=== PATIENT | female | born 1945 | race Caucasian/White ===

== ENCOUNTER 2024-03-23 04:55 | Inpatient (IN) | payer MEDICARE ==
[2024-03-23] VITALS (22 sets, daily range): BP systolic 90–119; BP diastolic 36–97; PULSE 55–95; RESP 12–19; TEMP 97.4–99; O2SAT 72–99
[~2024-03-23] VITALS: Ht 170.2 cm; Wt 113.0 kg
[2024-03-23] MEDS: normal saline 1000ML IV soln IV ONE (05:06)
[2024-03-23 05:31] LABS: BASOPHILS % (AUTO) 0.5 % (0-1); EOSINOPHILS # (AUTO) 0.3 X10'3 (0-0.9); EOSINOPHILS % (AUTO) 4.8 % (0-6); HEMATOCRIT 22.1 % (35.0-45.0); LYMPHOCYTES # (AUTO) 1.7 X10'3 (1.1-4.8); LYMPHOCYTES % (AUTO) 24.9 % (21-51); MEAN CORPUSCULAR HEMOGLOBIN 34.3 PG (27.0-31.0); MEAN CORPUSCULAR HGB CONC 31.8 g/dL (33.0-36.5); MEAN CORPUSCULAR VOLUME 107.7 FL (78-98); MONOCYTES # (AUTO) 0.5 X10'3 (0-0.9); MONOCYTES % (AUTO) 7.9 % (2-12); NEUTROPHILS # (AUTO) 4.2 X10'3 (1.8-7.7); NEUTROPHILS % (AUTO) 61.9 % (42-75); PLATELET COUNT 172 X10'3 (140-440); RED BLOOD COUNT 2.05 X10'6 (4.20-5.60); RED CELL DISTRIBUTION WIDTH 17.4 % (11.5-14.5); WHITE BLOOD COUNT 6.7 X10'3 (4.5-11.0)
[2024-03-23 05:40] LABS: ALBUMIN 2.2 G/DL (3.4-5.0); ANION GAP 15 (8-16); BLOOD UREA NITROGEN 57 MG/DL (7-18); BUN/CREATININE RATIO 10.5 (10.0-20.0); CALCIUM 6.3 MG/DL (8.5-10.1); CHLORIDE 104 MMOL/L (99-107); CREATININE 5.43 MG/DL (0.40-0.90); GLUCOSE 167 MG/DL (70-104); POTASSIUM 3.4 MMOL/L (3.5-5.1); SODIUM 141 MMOL/L (135-145); eCRCL 8 ML/MIN; eGFR 8 ML/MIN
[2024-03-23 05:46] LABS: APTT 28 SECONDS (22-32); INR 1.3 INR; PROTHROMBIN TIME 13.2 SECONDS (9.0-12.0)
[2024-03-23 06:01] LABS: ANISOCYTOSIS 1+; PLATELET ESTIMATE NORMAL
[2024-03-23] MEDS: HUM PROTHROMB CPLX-LANS 2,000 UNIT in IV piggyback 80 ML IV ONE (06:12)
[2024-03-23] MEDS ORDERED: iohexol 350MG/ML 100ml bottle IV ONE (06:20)
[2024-03-23] MEDS ORDERED: heparin 10,000 units/1 ML INJ ONE ×2 (07:24→07:35)
[2024-03-23] MEDS: VANCOMYCIN 1GM 200ML H20 (PEG) 200 ML IV ONE (07:45)
[2024-03-23] MEDS ORDERED: sevoflurane 250ml liquid IH ONE (07:52)
[2024-03-23] MEDS ORDERED: fentaNYL/PF 50MCG/1 ML 2ML syringe ONE (07:52)
[2024-03-23] MEDS ORDERED: midazolam 1 mg/ML 2ml injection ONE (07:53)
[2024-03-23] MEDS ORDERED: propofol inj 20 ML IV ONE (08:04)
[2024-03-23] MEDS ORDERED: ceFAZolin 1000mg inj ONE ×2 (08:04)
[2024-03-23] MEDS ORDERED: rocuronium 10mg/ml inj IV ONE (08:04)
[2024-03-23] MEDS ORDERED: clindamycin-Cleocin 900mg/D5W 50 ML IV ONE (08:10)
[2024-03-23] MEDS ORDERED: sugammadex 200mg/2ml injection IV ONE (09:40)
[2024-03-23] MEDS ORDERED: naloxone 0.4 mg/ml inj IV PRN (10:05)
[2024-03-23] MEDS ORDERED: ondansetron/PF 4mg/2ml inj IV PRN ×2 (10:05→10:15)
[2024-03-23] MEDS ORDERED: potassium Cl 20 mEq SR tablet PO PRN ×2 (10:15)
[2024-03-23] MEDS ORDERED: magnesium Cl slow-release 64mg tablet PO PRN (10:15)
[2024-03-23] MEDS ORDERED: magnesium sulf-water 2g/50mL 50 ML IV PRN (10:15)
[2024-03-23] MEDS ORDERED: potassium Cl 40MEQ/1/2NS 520ml 520 ML IV PRN (10:15)
[2024-03-23] MEDS ORDERED: morphine 2 MG/ML inj. syringe IV PRN (10:15)
[2024-03-23] MEDS ORDERED: magnesium sulf-water 4G/100mL 100 ML IV PRN (10:15)
[2024-03-23 10:40] LABS: MAGNESIUM 1.7 MG/DL (1.5-2.4)
[2024-03-23] MEDS: HYDROmorphone inj. 0.5 MG/0.5 ML DISP.SYRIN IV PRN (10:56)
[2024-03-23] MEDS: clindamycin 600mg/D5W 50ml 50 ML IV SCH (15:05)
[2024-03-23] MEDS: nystatin 15 GM powder TP SCH (20:00)
[2024-03-23] MEDS ORDERED: mineral oil/pet hy-phy 85gm ointment TP SCH (20:00)
[2024-03-24] VITALS (12 sets, daily range): BP systolic 86–115; BP diastolic 44–81; PULSE 68–108; RESP 16–24; TEMP 97–98.3; O2SAT 92–98
[2024-03-24 06:03] LABS: ALBUMIN 2.6 G/DL (3.4-5.0); ANION GAP 11 (8-16); BLOOD UREA NITROGEN 73 MG/DL (7-18); BUN/CREATININE RATIO 10.7 (10.0-20.0); CALCIUM 7.4 MG/DL (8.5-10.1); CHLORIDE 98 MMOL/L (99-107); CREATININE 6.83 MG/DL (0.40-0.90); GLUCOSE 104 MG/DL (70-104); POTASSIUM 5.1 MMOL/L (3.5-5.1); SODIUM 136 MMOL/L (135-145); TOTAL CARBON DIOXIDE 26.8 MMOL/L (24-32); eCRCL 6 ML/MIN; eGFR 6 ML/MIN
[2024-03-24 06:09] LABS: BASOPHILS # (AUTO) 0.1 X10'3 (0-0.2); BASOPHILS % (AUTO) 0.8 % (0-1); EOSINOPHILS # (AUTO) 0.2 X10'3 (0-0.9); EOSINOPHILS % (AUTO) 3.2 % (0-6); HEMATOCRIT 27.5 % (35.0-45.0); HEMOGLOBIN 9.1 g/dl (12.0-16.0); LYMPHOCYTES # (AUTO) 1.2 X10'3 (1.1-4.8); LYMPHOCYTES % (AUTO) 15.9 % (21-51); MEAN CORPUSCULAR HEMOGLOBIN 31.8 PG (27.0-31.0); MEAN CORPUSCULAR VOLUME 96.2 FL (78-98); MONOCYTES # (AUTO) 0.8 X10'3 (0-0.9); MONOCYTES % (AUTO) 10.9 % (2-12); NEUTROPHILS # (AUTO) 5.2 X10'3 (1.8-7.7); NEUTROPHILS % (AUTO) 69.2 % (42-75); PLATELET COUNT 172 X10'3 (140-440); RED BLOOD COUNT 2.86 X10'6 (4.20-5.60); RED CELL DISTRIBUTION WIDTH 20.5 % (11.5-14.5); WHITE BLOOD COUNT 7.6 X10'3 (4.5-11.0)
[2024-03-24] MEDS: EPOETIN ALFA-EPBX 20,000 UNIT/ML 1 ML MDV IV ONE (07:15)
[2024-03-24] MEDS ORDERED: albumin (human) 25% 100ml IV 100 ML IV PRN (08:00)
[2024-03-24] MEDS: mineral oil/petrolatum, white cream 113gm jar TP SCH (08:19)
[2024-03-24] MEDS: HYDROcodone/acetaminophen 5mg/325mg tablet PO PRN (08:19)
[2024-03-25] VITALS (8 sets, daily range): BP systolic 105–141; BP diastolic 38–74; PULSE 66–81; RESP 15–22; TEMP 96.9–98.2; O2SAT 93–98
[2024-03-25 06:17] LABS: BASOPHILS % (AUTO) 0.6 % (0-1); EOSINOPHILS # (AUTO) 0.4 X10'3 (0-0.9); EOSINOPHILS % (AUTO) 6.5 % (0-6); HEMATOCRIT 26.9 % (35.0-45.0); HEMOGLOBIN 9.1 g/dl (12.0-16.0); LYMPHOCYTES # (AUTO) 1.5 X10'3 (1.1-4.8); LYMPHOCYTES % (AUTO) 21.9 % (21-51); MEAN CORPUSCULAR HGB CONC 33.8 g/dL (33.0-36.5); MEAN CORPUSCULAR VOLUME 97.6 FL (78-98); MEAN PLATELET VOLUME 8.4 FL (7.4-10.4); MONOCYTES # (AUTO) 0.9 X10'3 (0-0.9); MONOCYTES % (AUTO) 13.4 % (2-12); NEUTROPHILS # (AUTO) 3.9 X10'3 (1.8-7.7); NEUTROPHILS % (AUTO) 57.6 % (42-75); PLATELET COUNT 152 X10'3 (140-440); RED BLOOD COUNT 2.76 X10'6 (4.20-5.60); RED CELL DISTRIBUTION WIDTH 20.8 % (11.5-14.5); WHITE BLOOD COUNT 6.7 X10'3 (4.5-11.0)
[2024-03-25 06:23] LABS: ALBUMIN 2.6 G/DL (3.4-5.0); ANION GAP 10 (8-16); BLOOD UREA NITROGEN 50 MG/DL (7-18); CALCIUM 8.1 MG/DL (8.5-10.1); CHLORIDE 100 MMOL/L (99-107); CREATININE 5.54 MG/DL (0.40-0.90); GLUCOSE 97 MG/DL (70-104); MAGNESIUM 2.1 MG/DL (1.5-2.4); POTASSIUM 4.5 MMOL/L (3.5-5.1); SODIUM 137 MMOL/L (135-145); TOTAL CARBON DIOXIDE 27.4 MMOL/L (24-32); eCRCL 8 ML/MIN; eGFR 7 ML/MIN
[2024-03-25 09:25] LABS: HBSAG SCREEN Negative (Negative)
[2024-03-25] MEDS ORDERED: bisacodyl 10mg suppository rectal RC PRN (21:05)
[2024-03-25] MEDS: magnesium hydroxide 30ml (MOM) UD suspension PO PRN (21:13)
[2024-03-26] VITALS (7 sets, daily range): BP systolic 100–118; BP diastolic 34–64; PULSE 61–76; RESP 16–22; TEMP 96.9–98.1; O2SAT 92–98
[2024-03-26 05:50] LABS: BASOPHILS % (AUTO) 0.8 % (0-1); EOSINOPHILS # (AUTO) 0.5 X10'3 (0-0.9); EOSINOPHILS % (AUTO) 9.2 % (0-6); HEMATOCRIT 26.9 % (35.0-45.0); HEMOGLOBIN 9.1 g/dl (12.0-16.0); LYMPHOCYTES # (AUTO) 1.2 X10'3 (1.1-4.8); LYMPHOCYTES % (AUTO) 22.9 % (21-51); MEAN CORPUSCULAR HEMOGLOBIN 33.1 PG (27.0-31.0); MEAN CORPUSCULAR HGB CONC 33.9 g/dL (33.0-36.5); MEAN CORPUSCULAR VOLUME 97.5 FL (78-98); MEAN PLATELET VOLUME 8.2 FL (7.4-10.4); MONOCYTES # (AUTO) 0.6 X10'3 (0-0.9); MONOCYTES % (AUTO) 11.5 % (2-12); NEUTROPHILS # (AUTO) 2.9 X10'3 (1.8-7.7); NEUTROPHILS % (AUTO) 55.6 % (42-75); PLATELET COUNT 156 X10'3 (140-440); RED BLOOD COUNT 2.76 X10'6 (4.20-5.60); RED CELL DISTRIBUTION WIDTH 20.2 % (11.5-14.5); WHITE BLOOD COUNT 5.2 X10'3 (4.5-11.0)
[2024-03-26 06:12] LABS: ALBUMIN 2.6 G/DL (3.4-5.0); ANION GAP 13 (8-16); BLOOD UREA NITROGEN 67 MG/DL (7-18); CALCIUM 8.3 MG/DL (8.5-10.1); CHLORIDE 99 MMOL/L (99-107); CREATININE 6.72 MG/DL (0.40-0.90); GLUCOSE 99 MG/DL (70-104); MAGNESIUM 2.3 MG/DL (1.5-2.4); POTASSIUM 4.9 MMOL/L (3.5-5.1); SODIUM 137 MMOL/L (135-145); TOTAL CARBON DIOXIDE 24.7 MMOL/L (24-32); eCRCL 7 ML/MIN; eGFR 6 ML/MIN
[2024-03-26 06:42] LABS: ANISOCYTOSIS 3+; PLATELET ESTIMATE NORMAL; POIKILOCYTOSIS FEW; POLYCHROMASIA FEW
[2024-03-26 06:43] LABS: STOMATOCYTES FEW
[2024-03-26] MEDS ORDERED: APIX5TAB3 PO (07:07)
[2024-03-26] MEDS ORDERED: SEVE800T8 PO (07:07)
[2024-03-26] MEDS ORDERED: FURO-150 PO (07:07)
[2024-03-26] MEDS ORDERED: ALLO100T PO (07:07)
[2024-03-26] MEDS ORDERED: IBAN150T21 PO (07:07)
[2024-03-26] MEDS ORDERED: BETA1TAB20 PO (07:07)
[2024-03-26] MEDS ORDERED: PARO25TA20 PO (07:07)
[2024-03-26] MEDS ORDERED: LOP12.5T PO (07:07)
[2024-03-26] MEDS ORDERED: AMIT10TA6 PO (07:07)
[2024-03-26] MEDS ORDERED: ATOR20TA66 PO (07:07)
[2024-03-26] MEDS ORDERED: AMI200T PO (07:07)
[2024-03-26] MEDS ORDERED: LEVO50TA PO (07:07)
[2024-03-26] MEDS: HYDROcodone/acetaminophen 5mg/325mg tablet PO PRN (07:51)
[2024-03-27] VITALS (15 sets, daily range): BP systolic 99–158; BP diastolic 35–72; PULSE 52–84; RESP 14–22; TEMP 97.2–100.5; O2SAT 93–98
[2024-03-27 06:46] LABS: ALBUMIN 2.6 G/DL (3.4-5.0); ANION GAP 14 (8-16); BLOOD UREA NITROGEN 83 MG/DL (7-18); BUN/CREATININE RATIO 10.5 (10.0-20.0); CALCIUM 8.4 MG/DL (8.5-10.1); CHLORIDE 97 MMOL/L (99-107); CREATININE 7.93 MG/DL (0.40-0.90); GLUCOSE 102 MG/DL (70-104); MAGNESIUM 2.7 MG/DL (1.5-2.4); SODIUM 134 MMOL/L (135-145); TOTAL CARBON DIOXIDE 23.4 MMOL/L (24-32); eCRCL 6 ML/MIN; eGFR 5 ML/MIN
[2024-03-27 06:47] LABS: BASOPHILS % (AUTO) 0.5 % (0-1); EOSINOPHILS # (AUTO) 0.4 X10'3 (0-0.9); EOSINOPHILS % (AUTO) 8.7 % (0-6); HEMATOCRIT 29.2 % (35.0-45.0); HEMOGLOBIN 9.2 g/dl (12.0-16.0); LYMPHOCYTES # (AUTO) 1.1 X10'3 (1.1-4.8); LYMPHOCYTES % (AUTO) 23.1 % (21-51); MEAN CORPUSCULAR HEMOGLOBIN 31.3 PG (27.0-31.0); MEAN CORPUSCULAR HGB CONC 31.5 g/dL (33.0-36.5); MEAN CORPUSCULAR VOLUME 99.3 FL (78-98); MEAN PLATELET VOLUME 8.3 FL (7.4-10.4); MONOCYTES # (AUTO) 0.4 X10'3 (0-0.9); NEUTROPHILS # (AUTO) 2.8 X10'3 (1.8-7.7); NEUTROPHILS % (AUTO) 58.7 % (42-75); PLATELET COUNT 175 X10'3 (140-440); RED BLOOD COUNT 2.94 X10'6 (4.20-5.60); RED CELL DISTRIBUTION WIDTH 20.6 % (11.5-14.5); WHITE BLOOD COUNT 4.8 X10'3 (4.5-11.0)
[2024-03-27 07:42] LABS: POTASSIUM 6.2 MMOL/L (3.5-5.1)
[2024-03-27] MEDS ORDERED: normal saline 1000ml 100 ML IV PRN (08:00)
[2024-03-27] MEDS ORDERED: non-formulary drug (Ibandronate Sodium 1 TAB) PO SCH (10:25)
[2024-03-27] MEDS: atorvastatin 20mg tablet PO SCH (10:25)
[2024-03-27] MEDS: amiodarone 200mg tablet PO SCH (10:25)
[2024-03-27] MEDS: metoprolol tartrate 25mg tablet PO SCH (10:25)
[2024-03-27] MEDS: furosemide 20MG tablet PO SCH (10:25)
[2024-03-27] MEDS ORDERED: allopurinol 100mg tablet PO SCH (10:25)
[2024-03-27] MEDS: EPOETIN ALFA-EPBX 20,000 UNIT/ML 1 ML MDV IV ONE (12:59)
[2024-03-27] MEDS: heparin 1,000 units/ml 10ml inj HE ONE ×2 (13:02→13:03)
[2024-03-27] MEDS: mannitol 12.5gm/50mL VIAL IV PRN (13:14)
[2024-03-27] MEDS: allopurinol 100mg tablet PO SCH (13:33)
[2024-03-27] MEDS: sevelamer carbonate 800mg tablet PO SCH (15:09)
[2024-03-27] MEDS: amitriptyline 10mg tablet PO SCH (19:21)
[2024-03-27] MEDS: acetaminophen 325mg tablet PO PRN (19:55)
[2024-03-27] MEDS ORDERED: non-formulary drug (Vit A/Vit C/Vit E/Zinc/Copper (Preservision Tablet) 1 TAB) PO SCH (20:00)
[2024-03-27] MEDS: apixaban 5mg tablet PO SCH (20:00)
[2024-03-28 00:56] VITALS: TEMP 97.9
[2024-03-28 02:00] VITALS: BP 101/33; PULSE 62; RESP 23; TEMP 98; O2SAT 95
[2024-03-28 06:00] VITALS: BP 107/51; PULSE 60; RESP 16; TEMP 97; O2SAT 97
[2024-03-28 06:19] LABS: ALBUMIN 2.4 G/DL (3.4-5.0); ANION GAP 11 (8-16); BLOOD UREA NITROGEN 47 MG/DL (7-18); BUN/CREATININE RATIO 8.3 (10.0-20.0); CALCIUM 8.2 MG/DL (8.5-10.1); CHLORIDE 103 MMOL/L (99-107); CREATININE 5.67 MG/DL (0.40-0.90); GLUCOSE 93 MG/DL (70-104); POTASSIUM 4.9 MMOL/L (3.5-5.1); SODIUM 140 MMOL/L (135-145); TOTAL CARBON DIOXIDE 26.5 MMOL/L (24-32); eCRCL 8 ML/MIN; eGFR 7 ML/MIN
[2024-03-28 06:23] LABS: BASOPHILS % (AUTO) 0.7 % (0-1); EOSINOPHILS # (AUTO) 0.5 X10'3 (0-0.9); EOSINOPHILS % (AUTO) 10.9 % (0-6); HEMATOCRIT 28.5 % (35.0-45.0); HEMOGLOBIN 9.1 g/dl (12.0-16.0); LYMPHOCYTES # (AUTO) 1.1 X10'3 (1.1-4.8); LYMPHOCYTES % (AUTO) 25.9 % (21-51); MEAN CORPUSCULAR HEMOGLOBIN 31.8 PG (27.0-31.0); MEAN CORPUSCULAR HGB CONC 32.1 g/dL (33.0-36.5); MEAN CORPUSCULAR VOLUME 99.3 FL (78-98); MEAN PLATELET VOLUME 8.2 FL (7.4-10.4); MONOCYTES # (AUTO) 0.6 X10'3 (0-0.9); MONOCYTES % (AUTO) 13.3 % (2-12); NEUTROPHILS # (AUTO) 2.2 X10'3 (1.8-7.7); NEUTROPHILS % (AUTO) 49.2 % (42-75); PLATELET COUNT 169 X10'3 (140-440); RED BLOOD COUNT 2.87 X10'6 (4.20-5.60); RED CELL DISTRIBUTION WIDTH 20.6 % (11.5-14.5); WHITE BLOOD COUNT 4.4 X10'3 (4.5-11.0)
[2024-03-28] MEDS: levoTHYROXINE 25mcg tablet PO SCH (07:54)
[2024-03-28] MEDS: PAROXETINE 25 MG PO SCH (07:54)
[2024-03-28 08:00] VITALS: RESP 16; O2SAT 97
[2024-03-28] MEDS ORDERED: EPOETIN ALFA-EPBX 20,000 UNIT/ML 1 ML MDV IV ONE (08:50)
[2024-03-28] MEDS ORDERED: normal saline 1000ml 100 ML IV PRN (08:50)
[2024-03-28] MEDS ORDERED: heparin 1,000 units/ml 10ml inj HE ONE (08:55)
[2024-03-28 11:00] VITALS: BP 122/44; PULSE 55; RESP 21; TEMP 98.5; O2SAT 97
[2024-03-28 15:00] VITALS: BP 130/78; PULSE 67; RESP 16; TEMP 98; O2SAT 98
[2024-03-28] MEDS ORDERED: CLIN-97 PO (16:57)
== END 2024-03-28 18:00 | disposition home health service (06) | DRG 252 ==
LOC: ER 04:56 → UNDOADMIN 10:08 → PACU 10:08 → PCU 3S 12:26
PROVIDERS: ADMIT Surgery; ATTEND Surgery
PROC: 05CF0ZZ Extirpation of Matter from Left Cephalic Vein, Open Approach (ICD-10-PCS; 2024-03-23)
PROC: BP2T1ZZ Computerized Tomography (CT Scan) of Right Upper Extremity using Low Osmolar Contrast (ICD-10-PCS; 2024-03-23)
PROC: 30233N1 Transfusion of Nonautologous Red Blood Cells into Peripheral Vein, Percutaneous Approach (ICD-10-PCS; 2024-03-23)
PROC: 05LF0ZZ Occlusion of Left Cephalic Vein, Open Approach (ICD-10-PCS; principal; 2024-03-23 07:52)
PROC: 5A1D70Z Performance of Urinary Filtration, Intermittent, Less than 6 Hours Per Day (ICD-10-PCS; 2024-03-24)
PROC: 5A1D70Z Performance of Urinary Filtration, Intermittent, Less than 6 Hours Per Day (ICD-10-PCS; 2024-03-27)
DX: T82.838A Hemorrhage due to vascular prosthetic devices, implants and grafts, initial encounter (principal); N18.6 End stage renal disease; R57.1 Hypovolemic shock; I13.2 Hypertensive heart and chronic kidney disease with heart failure and with stage 5 chronic kidney disease, or end stage renal disease; D62 Acute posthemorrhagic anemia; F32.A Depression, unspecified; E66.9 Obesity, unspecified; E87.6 Hypokalemia; E78.5 Hyperlipidemia, unspecified; I50.9 Heart failure, unspecified; E03.9 Hypothyroidism, unspecified; Y83.8 Other surgical procedures as the cause of abnormal reaction of the patient, or of later complication, without mention of misadventure at the time of the procedure; Z88.0 Allergy status to penicillin; Z99.2 Dependence on renal dialysis; Z79.01 Long term (current) use of anticoagulants; Z86.73 Personal history of transient ischemic attack (TIA), and cerebral infarction without residual deficits; Y92.89 Other specified places as the place of occurrence of the external cause; Z68.39 Body mass index [BMI] 39.0-39.9, adult
CPT/HCPCS: 36415; 36430; 73206; 80048; 83735; 85008; 85025; 85610; 85730; 86885; 86900; 86901; 86920; 87081; 87340; 93005; 97161; 97530; 99291; A4618; A4620; A6212; A6213; A6253; A6258; A6407; A6446; A6449; A6590; A7000; E1594; G0257; G0378; J0690; J1171; J1644; J2150; J2250; J2704; J3010; J3490; J7030; J7040; J7120; J7168; P9016; Q4081; Q9967

== ENCOUNTER 2024-03-28 18:28 | Emergency (ER) | payer MEDICARE ==
[~2024-03-28] VITALS: Ht 154.9 cm; Wt 104.5 kg
[~2024-03-28 18:28] MED LIST: ALLO100T PO; AMI200T PO; AMIT10TA6 PO; APIX5TAB3 PO; ATOR20TA66 PO; BETA1TAB20 PO; CLIN-97 PO; FURO-150 PO; IBAN150T21 PO; LEVO50TA PO; LOP12.5T PO; PARO25TA20 PO; SEVE800T8 PO
[2024-03-28 20:23] VITALS: BP 124/76; PULSE 74; RESP 16; TEMP 98.4; O2SAT 98
== END 2024-03-28 20:30 | disposition home or self-care (01) ==
LOC: ER 18:29
DX: S80.212A Abrasion, left knee, initial encounter (principal); S80.211A Abrasion, right knee, initial encounter; Z88.0 Allergy status to penicillin; Y93.89 Activity, other specified; Y92.89 Other specified places as the place of occurrence of the external cause; Y99.8 Other external cause status; W01.0XXA Fall on same level from slipping, tripping and stumbling without subsequent striking against object, initial encounter
CPT/HCPCS: 93005; 99284; A6446; A6449